=== PATIENT | male | born 1990 ===

== ENCOUNTER 2024-09-11 19:30 | Emergency (ER) | payer SELFPAY ==
--- OUTSIDE RECORDS SUMMARY | 2024-09-11 19:33 | XMS_ITS | Referral Summary ---
Author Organization [facility] [place] [address] [facility] 162 Address [address] [place] [address] Care Team Providers Care Information Resource Consultant Name Role Phone Mindy Rodriguez MD Primary Care Provider [phone] [phone] Allergies Active Allergy Reactions Criticality Noted Date Comments Penicillins Unknown 03/05/2017 Medications No known medications Active Problems Problem Noted Date Diagnosed Date Other chest pain 03/05/2017 Shortness of breath 03/05/2017 Elevated blood sugar level 03/05/2017 Anxiety Social History Tobacco Use Types Packs/Day Years Used Date Smoking Tobacco: Never Smokeless Tobacco: Never Alcohol Use Standard Drinks/Week Comments Yes 0 (1 standard drink = 0.6 oz pur e alcohol) Personal Safety Answer Date Recorded Getting School Help Needed Not on file 07/17 Sex and Gender Information Value Date Recorded Sex Assigned at Not on file Legal Sex Male 12:20 PM CDT Gender Identity Not on file Sexual Orientation Not on file Plan of Treatment Not on file Insurance [facility] CHOICE PLUS Care Teams Information Resource Consultant Relationship Specialty Start Date End Date Mindy Rodriguez MD [address] [address] PCP - General Family Medicine 03/05/17
--- OUTSIDE RECORDS SUMMARY | 2024-09-11 19:33 | XMS_ITS | Data Portability ---
Author Organization [facility], Main Office Address [address] [place] [address] Assessment No assessment recorded. Plan of Treatment Reminders Order Date Submit Date Provider Last Modified By Organization Details Last Modified Time Details Appointments None recorded. Lab None recorded. Referral None recorded. Procedures None recorded. Surgeries None recorded. Imaging None recorded. Medication Orders escitalopra m 10 mg tablet 2022 023 [facility]arm[facility] #[id number], [address] [place], [address], 14:41:25 Patient TargetsNo targets recorded. Patient Instructions Encounter Date Encounter Id Patient Instructions Last Modified By Organization Details Last Modified Time 09/08/2022 [id number] He gets blood work every year through work, this last time was better than in the past . He will get copies . if not , he will let me order some labs [email or web address] Not available 09/08/2022 14:51:05 Reason for Referral None Reported. Results Created Date Observation Date Name Description Value Unit Range Abnormal Flag Note LastModifiedBy Organization Detail LastModifiedTime 04/23/20 21 XR, knee, 3 view [facility] [address] [place] [address] Cynthia ford Name: DMITRI MAYBERRYVIVIANA Frederick Access ion #: [id number] Sex: M : 1990 4 Locati on: RA2 Attend ing Physic amber: JOAN BURRIS Orderi Physic amber: JOAN BURRIS Exam Date: 2020 12:01 PM Exam Name: XR KNEE LT 3V Admitt ing Diagno sis(es ): RADIOL OGY REPORT - FINAL EXAM: XR KNEE LT 3V HISTOR Y: pain COMPAR RAMONE: None availa ble. TECHNI QUE: 3 views of the left knee were perfor med. FINDIN GS: No acute fractu re is identi fied about the left knee. No signif icant joint space narrow ing. Trace effusi on is noted. If clinic al sympto ms persis t or worsen , then follow -up x-ray is recomm ended in 5-7 days. Page 1 of 2 [facility] Patien t Name: VAISHNAVI MAYBERRY Access ion #: [id number] Sex: M : 1990 4 Exam Date: 2020 12:01 PM Exam Name: XR KNEE LT 3V Admitt ing Diagno sis(es ): IMPRES MILY: Trace effusi on withou t acute osseou s abnorm ality noted. Create d and electr onical ly signed by: Yaya Li ch, DO Signed Date: 2020 12:15 PM (CT) Dictat ed by: Yaya Li ch, DO DD: 2020 12:15 PM (CT) DT: 2020 12:15 PM (CT) Page 2 of 2 [id number] [facility] (Imaging) [address] [place] [address], [address], 07/01/2022 08:50:25 04/23/20 21 04/23/2021 XR, knee, 3 view No observ ation record ed. [id number] [facility] [address] [place] [address], [place], [address], 07/01/2022 08:50:25 Result Notes None recorded. Problems Name Problem SNOMED Code Status Onset Date Resolution Date Notes Provider Name and Address Organization Details Recorded Time Gastroesop hageal reflux disease 950246535 Active 2018 Not Available [facility] 3 08:46:17 Low back pain 316521332 Active Not Available [facility] 3 08:46:17 Lower back injury 968694546 Active Not Available [facility] 3 08:46:17 Acute pharyngiti s 145645807 Completed Not Available [facility] 3 08:46:17 Anxiety 55721675 Active 2018 Not Available [facility] 3 08:46:17 COVID-19 808348865 Active 2020 Not Available [facility] 3 08:46:17 Depressive disorder 37973593 Active 2022 CANDIDO [facility] [address] [facility], [facility] [address], [place], [address] , [facility] Buzz Referrals [facility] 3 14:39:48 Problem Notes None recorded. Procedures Surgical History None recorded. Imaging Results Imaging Date Name Status LastModified by Organiz ation Details LastModified Time 04/23/2021 XR, knee, 3 view completed [id number] [facility] (Imaging) [address] [place], [address], 07/01/2022 08:50:25 04/23/2021 XR, knee, 3 view completed [id number] [facility] [address] [place] [address], [place], [address], 07/01/2022 08:50:25 Procedure Notes None recorded. Medical Equipment None Reported. Allergies Allergen ID Allergen Name Allergen Category Reaction Reaction Severity Criticality Documentation Date Start Date Code Code System Note Provider Name and Address Organization Details Recorded Time Product containin g penicilli n (product) medicatio n Not available Not available Not available 07/01/2022 53251 8001 SNOMED Not Available [facility] 3 08:50:16 Medications Name Sig Start Date Stop Date Status Note LastModified by Organization Details LastModified Time Prescription - Renewal active Not Available Not Available No t Available clindamycin HCl 300 mg capsule active Not Available Not Available Not Available prednisone 20 mg tablet 05/10 completed Not Available Not Available Not Available acetaminophe n 300 mg-codeine 30 mg tablet active Not Available Not Available Not Available Mobic 15 mg tablet Take 1 tablet every day by oral route in the morning for 30 days. 11/19 completed Not Available Not Available Not Available ciprofloxaci n 0.3 % eye drops 05/10 completed Not Available Not Available Not Available ranitidine 150 mg tablet Take 1 tablet twice a day by oral route for 90 days. 01/15 completed Not Available Not Available Not Available omeprazole 20 mg capsule,nikko yed release TAKE 1 CAPSULE BY MOUTH EVERY DAY 09/08 completed Not Available Not Available Not Available Drysol Dab-O-Matic 20 % topical solution 05/10 completed Not Available Not Available Not Available diclofenac sodium 75 mg tablet,delay ed release Take 1 tablet twice a day by oral route. 09/08 completed Not Available Not Available Not Available mupirocin 2 % topical ointment 05/10 completed Not Available Not Available Not Available methylpredni solone 4 mg tablets in a dose pack active Not Available Not Available No t Available Ventolin HFA 90 mcg/actuatio n aerosol inhaler 05/10 completed Not Available Not Available Not Available escitalopram 10 mg tablet TAKE 1 TABLET BY MOUTH EVERY DAY 2023 active Not Available Not Available Not Avai lable cyclobenzapr ine 5 mg tablet TK 1 T PO QHS active Not Available Not Available No t Available escitalopram 5 mg tablet TAKE 1 TABLET BY MOUTH EVERY DAY 06/13 completed Not Available Not Available Not Available Vitals Date Recorded Body mass index (BMI) Body height Oxygen saturation Oxygen saturation in Arterial blood by Pulse oximetry Heart rate Respiratory rate Body temperature Body weight Systolic blood pressure Diastolic blood pressure Provider Name and Address Organization Details Last Updated DateTime 1 25.6 kg/m2 185.42 cm 96 % 96 % 98 /min 16 /min 97.7 [degF] 04680.9 2 g 128 mm[Hg] 82 mm[Hg] Not Available [facility] 3 08:43:41 Date Recorded Body height Body mass index (BMI) Body weight Body temperature Heart rate Oxygen saturation Oxygen saturation in Arterial blood by Pulse oximetry Systolic blood pressure Diastolic blood pressure Provider Name and Address Organization Details Last Updated DateTime 3 185.42 cm 25.2 kg/m2 07109.1 4 g 97.9 [degF] 97 /min 97 % 97 % 118 mm[Hg] 76 mm[Hg] Alvina Diaz MA [facility] 14:29:13 Social History Question Answer Notes LastModified by Organizat ion Details LastModified Time Tobacco Smoking Status Never Smoker Alvinamandie Diaz MA null, [facility] 09/08/2022 14:31:08 What Is Your Level Of Caffeine Consumption? Occasional [email or web address] Information not available 09/08/2022 Do You Use Your Seat Belt Or Car Seat Routinely? Yes [email or web address] Information not available 09/08/2022 Do You Participate In Social Media? Yes [email or web address] Information not available 09/08/2022 Sex: Unknown Functional Status Question Answer Note LastModified by Organizat ion Details LastModified Time Do you use any illicit or recreational drugs? No [email or web address] Information not available 09/08/2022 What is your level of alcohol consumption? 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 [id number] [email or web address] Information not available 09/08/2022 Family History Relationship Description Onset Age of this Age Resolved Age Notes LastModified by Organization Details LastModified Time Father No current problems or disability [email or web address] Not available 01/2023 14:30:13 Mother No current problems or disability [email or web address] Not available 01/2023 14:30:13 Medical History No medical history recorded. Immunizations Vaccine Type Date Status Note Provider Nam e and Address Organization Details Recorded Time Tdap 05/03/2015 completed Not Available [facility] 07/01/2022 08:50:03 Past Encounters Encounter ID Performer Location Encounter Start Date Encounter Closed Date Diagnosis/Indication Diagnosis SNOMED-CT Code Diagnosis ICD10 Code Diagnosis Note [id number] Refugio Medeiros MD [facility] [place] [address] [facility] [address] , [place] [address] 04/23/2021 00:00:00 04/23/2021 14:38:14 [id number] Refugio Medeiros MD [facility] [place] [address] [facility] [place] [address] 09/08/2022 14:18:42 09/08/2022 14:50:01 Anxiety 10213639 F41.9 Depressive disorder 3548 9007 F32.A Health Concerns Section Related Observation LastModified by Organization Detai ls LastModified Time None Recorded Concern Status LastModified by Organization Details LastModified Time None Recorded Advance Directives Directive None Recorded Payers Encounter Date Sequence Insurance Name Policy Number Policy Nick Covered Member ID Nick Member ID Guarantor Name 09/08/2022 1 [facility] [id number] Vaishnavi Pina [id number] Vaishnavi Pina Notes Date Note Type Note Provider Name and Address Organization Details Recorded Time 09/08/2022 text/html anxiety, cardiac workup negative. lexapro helps , out of it for 4 days and he can tell. no si/hi. lost his favorite grandpa a few years ago . CANDIDO [facility] [address], [place], [address], [facility] [employer] 09/09/2022 12:05:47
--- OUTSIDE RECORDS SUMMARY | 2024-09-11 19:33 | XMS_ITS | Clinical Summary ---
Author Organization [facility] [place] 6810 [facility] 162 Address [address] [place] [address] Care Team Providers Care Timber Poisoner Name Role Phone Mindy Rodriguez MD Primary Care Provider [phone] [phone] Allergies Active Allergy Reactions Criticality Noted Date Comments Penicillins Unknown 03/05/2017 Medications No known medications Active Problems Problem Noted Date Diagnosed Date Other chest pain 03/05/2017 Shortness of breath 03/05/2017 Elevated blood sugar level 03/05/2017 Anxiety Medical History Medical History Date Comments Anxiety Other chest pain 03/05/2017 Shortness of breath 03/05/2017 Elevated blood sugar level 03/05/2017 Family History Medical History Relation Name Comments Heart attack Maternal Grandfather Heart attack Paternal Grandfather Cancer Paternal Grandmother Relation Name Status Comments Maternal Grandfather Paternal Grandfather Paternal Grandmother Social History Tobacco Use Types Packs/Day Years [...] on file Sexual Orientation Not on file Obstetrics History Plan of Treatment Not on file Insurance [facility] CHOICE PLUS Care Teams Timber Poisoner Relationship Specialty Start Date End Date Mindy Rodriguez MD [address] [address] PCP - General Family Medicine 03/05/17
--- OUTSIDE RECORDS SUMMARY | 2024-09-11 19:33 | XMS_ITS | Clinical Summary ---
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 Gender Identity Not on file Sexual Orientation Not on file Plan of Treatment Health Maintenance Due Date Last Done Comments Hepatitis C Virus (HCV) Screening 1990 Hepatitis B Immunization (1 of 3 - 19+ 3-dose series) 07/20/2011 Influenza Immunization (#1) 2024 SARS-COV-2 Immunization ( - 2023- season) 2024 Respiratory Syncytial Virus (RSV) Immunization (Adult) (1 - 1-dose 75+ series) 07/20/2067 DTaP/Tdap/Td Immunization Discontinued 2015, 1990, 1990 TdaP Immunization Completed 05/03/2015 Meningococcal Immunization (ACWY) Aged Out No longer eligible based on patient's age to complete this topic Pneumococcal Immunization Combined Aged Out No longer eligible based on patient's age to complete this topic Rotavirus Immunization Aged Out No lo nger eligible based on patient's age to complete this topic
[2024-09-11 19:48] VITALS: BP 143/96; PULSE 105; RESP 97; TEMP 37.6; O2SAT 97
--- NOTE | 2024-09-11 19:53 | ED.GENADULT ---
HPI - General Adult General Chief complaint: Dental/Oral Stated complaint: dental infection Time Seen by Provider: 09/11/24 19:33 History of Present Illness HPI narrative: 34-year-old male present to the emergency department for evaluation for intermittent fever. Patient was started on antibiotics for dental pain on 09/06 patient states the pain has improved. Patient states he is still running intermittent fevers that do improve with Tylenol and ibuprofen. Related Data Allergies Allergy/AdvReac Type Severity Reaction Status Date / Time Penicillins Allergy Unknown Verified 06/08/16 11:14 Review of Systems Review of Systems: All systems reviewed & are unremarkable except as noted in HPI and below PMFSH Social History Social History Smoking status: Never smoker Alcohol intake: never Exam Narrative: APPEARANCE: Well appearing, no pain, no distress, well-nourished. HEAD: normocephalic, atraumatic. EYES: PERRLA/EOMI, conjunctivae clear. NOSE: Normal no drainage EARS:TMS clear with good light reflex. THROAT: Pharynx clear, no exudate. NECK: Supple. No adenopathy, no masses. RESPIRATORY: Airway patent, respirations nonlabored. Clear to auscultation bilaterally, no rales, rhonchi, wheezing. CARDIOVASCULAR: Regular rate and rhythm without murmurs rubs or gallops. ABDOMINAL: Soft, nontender, nondistended, normal bowel sounds MUSCULOSKELETAL: Moves all extremities. Strength/ROM intact, No edema, No calf tenderness. NEURO: Alert. Cranial nerves II through XII intact. Good gait. Good coordination SKIN: Warm, dry. Normal Color Course Vital Signs Vital signs: Vital Signs Temperature 99.6 F 09/11/24 19:48 Pulse Rate 105 H 09/11/24 19:48 Respiratory Rate 97 H 09/11/24 19:48 Blood Pressure 143/96 H 09/11/24 19:48 Pulse Oximetry 97 09/11/24 19:48 Temperature 99.6 F 09/11/24 19:48 Pulse Rate 105 H 09/11/24 19:48 Respiratory Rate 97 H 09/11/24 19:48 Blood Pressure 143/96 H 09/11/24 19:48 Pulse Oximetry 97 09/11/24 19:48 Medical Decision Making [facility] Narrative Medical decision making narrative: 34-year-old male presents emergency department for evaluation for fever during a current dental infection. Patient has been taking clindamycin. Patient was mildly tachycardic with heart rate of 105 but patient states he is nervous being an a hospital. Patient did have a temperature of 99.6? orally. Patient has no appreciable trismus or facial swelling. Patient does still have approximately 5 days left of antibiotics. Patient was encouraged close follow-up with his dentist. Vital Signs Vital Signs: Vital Signs Temperature 99.6 F 09/11/24 19:48 Pulse Rate 105 H 09/11/24 19:48 Respiratory Rate 97 H 09/11/24 19:48 Blood Pressure 143/96 H 09/11/24 19:48 Pulse Oximetry 97 09/11/24 19:48 Temperature 99.6 F 09/11/24 19:48 Pulse Rate 105 H 09/11/24 19:48 Respiratory Rate 97 H 09/11/24 19:48 Blood Pressure 143/96 H 09/11/24 19:48 Pulse Oximetry 97 09/11/24 19:48 Discharge Plan Discharge Clinical Impression: Toothache, Fever Patient Disposition: Home Condition: Stable Instructions: Antibiotic Form, Toothache (ED) Additional Instructions: Continue your antibiotic as directed until completed. Continue Tylenol and ibuprofen for pain and for fever control. Have close follow-up with your dentist. Patient Language: Nepali Follow-up/Referrals: PHYSICIAN,DRYING FRAME OPERATOR [Primary Care Provider] -
--- OUTSIDE RECORDS SUMMARY | 2024-09-11 20:12 | XMS_ITS | Clinical Summary ---
Author Organization [facility] [place] [address] [facility] 162 Address [address] [place] [address] Care Team Providers Care National Facilities Manager Name Role Phone Mindy Rodriguez MD Primary Care Provider +1 [phone] Allergies Active Allergy Reactions Criticality Noted Date [...] Plan of Treatment Not on file Insurance [facility] CHOICE PLUS Care Teams National Facilities Manager Relationship Specialty Start Date End Date Mindy Rodriguez MD [address] [address] PCP - General Family Medicine 03/05/17
--- OUTSIDE RECORDS SUMMARY | 2024-09-11 20:12 | XMS_ITS | Referral Summary ---
Author Organization [facility] [address] [facility] 162 Address [address] [place] [address] Care Team Providers Care Promotional Marketing Agent Name Role Phone Mindy Rodriguez MD Primary Care Provider [phone] [phone] Allergies Active Allergy Reactions Criticality Noted Date [...] Plan of Treatment Not on file Insurance [facility] CHOICE PLUS Care Teams Promotional Marketing Agent Relationship Specialty Start Date End Date Mindy Rodriguez MD [address] [address] PCP - General Family Medicine 03/05/17
--- OUTSIDE RECORDS SUMMARY | 2024-09-11 20:12 | XMS_ITS | Clinical Summary ---
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
== END 2024-09-11 20:10 | disposition home or self-care (01) ==
LOC: ANHED 20:10
PROVIDERS: Emergency Provider Emergency Medicine
DX: R50.9 Fever, unspecified (principal); K08.89 Other specified disorders of teeth and supporting structures
CPT/HCPCS: 99281